=== PATIENT | female | born 1950 | race Caucasian/White ===

== ENCOUNTER → 2016-12-21 | Outpatient (CLI) | payer MEDICARE, OTHER | END | disposition home or self-care (01) | LOC: ORTHO 00:36 | DX: M17.12 Unilateral primary osteoarthritis, left knee (principal) ==

== ENCOUNTER → 2016-12-23 | Outpatient (CLI) | payer MEDICARE, OTHER | END | disposition home or self-care (01) | LOC: MRI 02:02 | DX: S83.412A Sprain of medial collateral ligament of left knee, initial encounter (principal); M93.262 Osteochondritis dissecans, left knee; S83.242A Other tear of medial meniscus, current injury, left knee, initial encounter; M25.762 Osteophyte, left knee; M71.22 Synovial cyst of popliteal space [Baker], left knee; M94.8X8 Other specified disorders of cartilage, other site; M25.462 Effusion, left knee; X58.XXXA Exposure to other specified factors, initial encounter; Y93.89 Activity, other specified; Y92.89 Other specified places as the place of occurrence of the external cause; Y99.8 Other external cause status ==

== ENCOUNTER → 2017-01-05 | Outpatient (CLI) | payer MEDICARE, OTHER ==
[2017-01-05 12:11] LABS: BASO # 0.1 10*3/uL (0.0-0.1); BASO % 0.7 % (0.0-1.0); EOS # 0.2 10*3/uL (0.0-0.4); EOS % 2.3 % (1.0-4.0); HEMATOCRIT 39.8 % (37.0-47.0); HEMOGLOBIN 12.7 g/dl (12.0-16.0); LYMPH # 1.7 10*3/uL (1.3-4.4); LYMPH % 22.9 % (27.0-41.0); MEAN CELL VOLUME 95.2 fl (81.0-99.0); MEAN CORPUSCULAR HGB 30.4 pg (27.0-31.0); MEAN CORPUSCULAR HGB CONC 31.9 g/dl (33.0-37.0); MEAN PLATELET VOLUME 10.3 fl (9.6-12.3); MONO # 0.7 10*3/uL (0.1-1.0); MONO % 9.3 % (3.0-9.0); NEUT # 4.7 10*3/uL (2.3-7.9); NEUT % 64.5 % (47.0-73.0); PLATELET COUNT AUTOMATED 301 10*3/uL (130-400); RED BLOOD COUNT 4.18 10*6/uL (4.10-5.10); RED CELL DISTRI WIDTH 13.6 % (0-14.5); WHITE BLOOD COUNT 7.3 10*3/uL (4.8-10.8)
[2017-01-05 12:38] LABS: ALBUMIN 3.6 gm/dl (3.1-4.5); ALKALINE PHOSPHATASE 121 U/L (45-117); BILIRUBIN, TOTAL 0.6 mg/dl (0.2-1.0); BUN 15 mg/dl (7-24); CARBON DIOXIDE 29 mmol/L (21-32); CHLORIDE 105 mmol/L (98-107); CHOLESTEROL 205 mg/dL (<200); EST GLOM FILT AFRICAN AMERICAN > 60 ml/min; GLUCOSE 92 mg/dL (65-99); HDL CHOLESTEROL 61 mg/dl (40-60); LDL CHOLESTEROL 98 mg/dL (9-159); POTASSIUM 4.6 mmol/L (3.5-5.1); SGOT/AST 14 IU/L (3-35); SGPT/ALT 18 U/L (12-78); SODIUM 143 mmol/L (136-145); TOTAL PROTEIN 8.1 gm/dL (6.4-8.2); TRIGLYCERIDES 231 mg/dl (<150); URIC ACID 7.6 mg/dL (2.6-6.0); VLDL CHOLESTEROL 46 mg/dL (6-40)
[2017-01-05 12:57] LABS: VITAMIN D, 25-HYDROXY 12.8 ng/mL (30-100)
== END | disposition home or self-care (01) ==
LOC: LAB 11:36
PROVIDERS: Internal Medicine
DX: M10.072 Idiopathic gout, left ankle and foot (principal); M81.0 Age-related osteoporosis without current pathological fracture; E66.09 Other obesity due to excess calories; E53.8 Deficiency of other specified B group vitamins; E55.9 Vitamin D deficiency, unspecified

== ENCOUNTER → 2017-01-11 | Outpatient (CLI) | payer MEDICARE, OTHER | END | disposition home or self-care (01) | LOC: CT 10:43 | DX: M93.262 Osteochondritis dissecans, left knee (principal) ==

== ENCOUNTER → 2017-02-17 | Outpatient (CLI) | payer MEDICARE, OTHER | END | disposition home or self-care (01) | LOC: MAMMO 01:51 | DX: Z12.31 Encounter for screening mammogram for malignant neoplasm of breast (principal); Z13.820 Encounter for screening for osteoporosis; Z78.0 Asymptomatic menopausal state; Z90.710 Acquired absence of both cervix and uterus ==

== ENCOUNTER → 2017-03-07 | Outpatient (CLI) | payer MEDICARE, OTHER ==
[~2017-03-07] MED LIST: ALLOPURINOL100 MG PO; B121000 MCG/1 IM; MICRONIZED COLES1 GM PO; PROPRANOLOL HCL40 MG PO
[2017-03-07 10:08] LABS: BILIRUBIN NEGATIVE (NEGATIVE); BLOOD 1+ (NEGATIVE); CLARITY CLEAR (CLEAR); COLOR YELLOW (YELLOW); GLUCOSE NEGATIVE (NEGATIVE); KETONE NEGATIVE (NEGATIVE); LEUKO ESTERASE NEGATIVE (NEGATIVE); NITRITE NEGATIVE (NEGATIVE); SPECIFIC GRAVITY 1.015 (1.005-1.030); UROBILINOGEN 0.2 E.U./dl (0.2-1.0)
[2017-03-07 10:23] LABS: BASO # 0.1 10*3/uL (0.0-0.1); BASO % 0.9 % (0.0-1.0); EOS # 0.2 10*3/uL (0.0-0.4); EOS % 2.9 % (1.0-4.0); HEMATOCRIT 40.6 % (37.0-47.0); HEMOGLOBIN 13.1 g/dl (12.0-16.0); LYMPH # 1.7 10*3/uL (1.3-4.4); LYMPH % 24.9 % (27.0-41.0); MEAN CELL VOLUME 95.5 fl (81.0-99.0); MEAN CORPUSCULAR HGB 30.8 pg (27.0-31.0); MEAN CORPUSCULAR HGB CONC 32.3 g/dl (33.0-37.0); MEAN PLATELET VOLUME 10.6 fl (9.6-12.3); MONO # 0.6 10*3/uL (0.1-1.0); NEUT # 4.2 10*3/uL (2.3-7.9); PLATELET COUNT AUTOMATED 282 10*3/uL (130-400); RED BLOOD COUNT 4.25 10*6/uL (4.10-5.10); RED CELL DISTRI WIDTH 13.9 % (0-14.5); WHITE BLOOD COUNT 6.8 10*3/uL (4.8-10.8)
[2017-03-07 10:47] LABS: ALBUMIN 3.7 gm/dl (3.1-4.5); BUN 12 mg/dl (7-24); CHLORIDE 108 mmol/L (98-107); CREATININE 0.89 mg/dL (0.55-1.02); SGOT/AST 17 IU/L (3-35); SGPT/ALT 19 U/L (12-78); SODIUM 142 mmol/L (136-145)
[2017-03-07 10:48] LABS: ALKALINE PHOSPHATASE 129 U/L (45-117); TOTAL PROTEIN 8.1 gm/dL (6.4-8.2)
== END | disposition home or self-care (01) ==
LOC: LAB 08:11
PROVIDERS: Orthopaedic Surgery
DX: Z01.818 Encounter for other preprocedural examination (principal); M17.12 Unilateral primary osteoarthritis, left knee; Q25.46 Tortuous aortic arch; Z79.899 Other long term (current) drug therapy; Z96.652 Presence of left artificial knee joint

== ENCOUNTER 2017-03-14 03:17 | Inpatient (IN) | payer MEDICARE, OTHER ==
[2017-03-14] VITALS (9 sets, daily range): BP systolic 112–161; BP diastolic 52–71
[~2017-03-14] VITALS: Ht 165.1 cm; Wt 92.5 kg
--- NOTE | ~2017-03-14 | O ---
[place], [place] OPERATIVE NOTE NAME: SHANNAN CANTU UNIT #: [id number] ROOM: 422 DOCTOR: YOLANDE ROSAS DO BIRTHDATE: [birth year] DOS: 03/14/2017 PREOPERATIVE DIAGNOSIS: Tricompartmental left knee osteoarthritis. POSTOPERATIVE DIAGNOSIS: Tricompartmental left knee osteoarthritis. PROCEDURE: Left total knee arthroplasty, tricompartmental. SURGEON: Yolande Rosas D.O. FIRST ASSISTANTS: Robinson Wong Evans, Holder. ANESTHESIA: [place], NURSE EDUCATOR, Spinal. INDICATIONS: The patient is a 66-year-old female with a history of pain and disability at the left knee, unrelieved with conservative care. The risks and benefits of the procedure were explained to the patient preoperatively. Preoperative labs and x-rays were obtained including preoperative medical clearance. PROCEDURE IN DETAIL: The left knee was marked in the holding room. The patient was brought to the operative suite. Spinal anesthetic was performed by Anesthesia. When this was adequate, the patient received preoperative antibiotics, Ancef 2 grams IV piggyback. Timeout was performed. The tourniquet was placed on the left upper thigh. The left lower extremity was prepped and draped in usual orthopedic fashion. The incision was planned at the midline, patellar region. This was injected with Marcaine 0.5% with epinephrine. The extremity was exsanguinated and the tourniquet was inflated to 350 mmHg. The midline patellar incision was made sharply with a scalpel. Subcutaneous tissue was spread down to the level of the quadriceps mechanism. Electrocautery was used to maintain hemostasis. The quadriceps mechanism was divided in a medial parapatellar fashion. The quadriceps and patella was slid laterally. The knee was flexed to 90 degrees. The prepatellar fat pad and the anterior cruciate ligament were debrided as well as the anterior portion of the medial and lateral meniscus. The F1-I jig was placed on to the distal femur with the stylet at the anterior cortex of the femur. The coring tool was utilized to create 2 holes in the distal femur and advanced to the level of the subchondral bone. The alignment IJ-F2 was attached to the distal resection, IJ-F3C. Two parallel drill holes were filled with smooth pins and a third was placed for stability. The rotational reference holes were drilled and marked with a marking pen. The F2 jig was removed. The oscillating saw was used to make the distal femoral cut. The cross pins and the FC-I Jig was removed. The F1 jig was removed. The 2 pins were placed in the previously marked holes of the distal femur. The F4 anterior, posterior, resection jig was placed over Steinmann pins and sat flushed against the cut distal surface. The chandrakant wing was utilized to avoid any anterior notching of the femur. Two additional pins were utilized to set rotation. The anterior femoral cut followed by the posterior femoral cut and the anterior chamfer cuts were made. The 2 femoral lug holes were drilled with an 8-mm bit. The pins and the F4-I jig were [place], [place] OPERATIVE NOTE NAME: SHANNAN CANTU UNIT #: [id number] ROOM: [facility] DOCTOR: YOLANDE ROSAS DO BIRTHDATE: [birth year] removed. The F5-I jig was then placed and the posterior chamfer cuts were made. Attention was turned to the proximal tibia. The patient's specific jig was placed on the proximal tibia after the articular cartilage had been cleared from the area of the projections down to the subchondral bone. The alignment jig was attached. This was found to be adequate. Two parallel pins and one cross pin were placed. The proximal tibial cut was made using an oscillating saw, followed by a large osteotome to remove the articular surface of the tibia. All drapes were removed and any remaining meniscal tissue was removed sharply. The femoral trial was put into place, followed by the tibial prep IJ-4. The alignment was confirmed with the alignment adamaris. The knee was taken through range of motion, 0-120,. Stability was evaluated at 0 and 30 degrees and found to be adequate. The T4A tibial preparation drill tower was seated in the T4 I-jig and the tack pins were placed. The stem was drilled through the tower and the tower was then removed. The keel punch was then utilized to prepare the proximal tibia. The tibial T4-I jig was then removed. Attention was then turned to the patella. Utilizing the caliber, the articular surface was removed with the oscillating saw. The patellar sizer was then put into place and a 32 mm patella was determined to be the most appropriate size. The drill holes were made through the sizer and the sizer was removed. A pulse lavage was utilized to remove any remaining bony or cartilaginous fragments from the cut edges of the tibia, femur or patella. The methyl methacrylate was mixed and the tibial tray was coated with methyl methacrylate. This was then impacted into place and any excess cement was removed using a Tioga elevator. The femoral implant was then coated with methyl methacrylate and cemented into place. Excess cement was cleared using the Tioga elevator and a curette. The lateral trial 6 mm insert was placed followed by the medial trial. The knee was placed into full extension and the patella was cemented into place and held by the patellar clamp. The cement was allowed to set. The trial inserts were removed and the knee was reevaluated for any remaining cement debris and copiously irrigated with normal saline. When this was found to be adequate, the 6 mm medial and lateral inserts were placed with the lateral first and the medial second, followed by impacting with the poly impacter tip and a mallet. This was confirmed to be locked into place with no remaining gapping between the inserts and the tibial tray. The knee was taken through the range of motion again from 0-120 with stability evaluated in a varus and valgus direction at 0 and 30 degrees. This was found to be stable. There was found to have excellent patellar tracking. The wound was closed in a layered fashion using 0 Vicryl for the quadriceps mechanism, followed by 2-0 Vicryl and skin zack. The incision was again injected with Marcaine 0.5% with epinephrine. The tourniquet was released. Xeroform, 4 x 4s, cast padding, and ABDs were applied followed by an Charles bandage from the metatarsal heads to the groin. The patient was taken to the recovery room in satisfactory condition. ESTIMATED BLOOD LOSS: 150 mL. Sponge and needle count correct. [place], [place] OPERATIVE NOTE NAME: SHANNAN CANTU UNIT #: [id number] ROOM: [facility] DOCTOR: YOLANDE ROSAS DO BIRTHDATE: [birth year] SPECIMENS: Bone and soft tissue from the distal femur, proximal tibia and articular surface of the patella sent to lab for further study. DRAINS: None. PACKING: None. COMPLICATIONS: None. IMPLANTS: ConforMIS cemented tibial and femoral cruciate retaining implants and patellar button 32 x 6 mm. YOLANDE ROSAS DO CM:OPRECORD:OPERATIVE NOTE [id number] YOLANDE ROSAS DO 03/20/172205 interface
--- NOTE | 2017-03-14 12:20 | NUR ---
A 66, admitted to , under the services of RENNY Amaya DO with a diagnosis of S/P TOTAL LEFT KNEE ARTHROPLASTY. Chief complaint is SURGERY. Patient arrived via bed from [place]. Monitor applied. Initial assessment completed. Vital signs taken and recorded. RENNY AMAYA DO notified of admission to the unit. Orders received. See assessment for past medical history, medications and allergies. Patient and/or family oriented to unit. [facility] reviewed. Clothing/patient valuable form completed. RAFFI LAYNE
--- NOTE | 2017-03-14 12:33 | NUR ---
PHYSICAL THERAPY PAtient not on floor at this time. Thank you for this referral. Linda Peña,PT
--- NOTE | 2017-03-14 13:09 | NUR ---
MED REC UPDATED BY CALLING [facility] AND PT RECALL.
--- NOTE | 2017-03-14 13:10 | NUR ---
PT STATES SHE IS GOING TO USE [facility] BUT THE LAST PLACE MEDS WERE FILLED WAS [facility].
--- NOTE | 2017-03-14 14:22 | NUR ---
PHYSICAL THERAPY Patient evalauted on 4, full evaluation to follow. Continue with PT as per plan of care with fall and new TKA left LE- WBAT precautions. Qualifies for SNF for impaird mobility in order to return to PLOF of 100 % (I). PAtient is moderate complexity via chart review, tests and evaluation: 63623. Thank you for this referral. Linda Truong,PT
--- NOTE | 2017-03-14 16:30 | NUR ---
DR LARSON NOTIFIED THAT PT RECTAL TEMP IS 96.3 HE STATED TO PUT SOME WARM BLANKETS ON HER AND RECHECK.
--- NOTE | 2017-03-14 17:00 | NUR ---
PT INSTRUCTED FOR IS THERAPY. PT GAVE A RETURN DEMONSTRATION ACHIEVING A VOLUME OF 1500 ML X 10 BREATHS. GOOD EFFORT. NO C/O QUESTIONS.
--- NOTE | 2017-03-14 17:15 | NUR ---
zofran given at this time for n/v. will cont to monitor. call light in reach.
--- NOTE | 2017-03-14 17:47 | NUR ---
TEMP RECHECK 97.3 AXILLARY.
--- NOTE | 2017-03-14 18:15 | NUR ---
VINCE LLANES AT THIS TIME. WILL CONT TO MONITOR. CALL LIGHT IN REACH.
--- NOTE | 2017-03-14 22:47 | NUR ---
PATIENT MEDICATED WITH PRN NORCO ORDERD FOR C/O STOMACH PAIN AT A 5.
--- NOTE | 2017-03-14 23:53 | NUR ---
PATIENT MEDICATED WITH PRN ZOFRAN ORDERED FOR NAUSEA AND VOMITING.
[2017-03-15] VITALS: BP 120/54
[2017-03-15 06:50] LABS: BASO % 0.2 % (0.0-1.0); EOS # 0.1 10*3/uL (0.0-0.4); EOS % 1.4 % (1.0-4.0); HEMATOCRIT 31.2 % (37.0-47.0); LYMPH # 1.2 10*3/uL (1.3-4.4); MEAN CELL VOLUME 96.6 fl (81.0-99.0); MEAN CORPUSCULAR HGB CONC 32.1 g/dl (33.0-37.0); MEAN PLATELET VOLUME 10.4 fl (9.6-12.3); MONO # 1.3 10*3/uL (0.1-1.0); MONO % 15.6 % (3.0-9.0); NEUT # 5.7 10*3/uL (2.3-7.9); NEUT % 68.6 % (47.0-73.0); PLATELET COUNT AUTOMATED 224 10*3/uL (130-400); RED BLOOD COUNT 3.23 10*6/uL (4.10-5.10); RED CELL DISTRI WIDTH 13.9 % (0-14.5); WHITE BLOOD COUNT 8.4 10*3/uL (4.8-10.8)
[2017-03-15 07:04] LABS: BUN 14 mg/dl (7-24); CHLORIDE 104 mmol/L (98-107); CREATININE 0.93 mg/dL (0.55-1.02); POTASSIUM 3.9 mmol/L (3.5-5.1); SODIUM 140 mmol/L (136-145)
[2017-03-15 07:26] LABS: VITAMIN D, 25-HYDROXY 13.9 ng/mL (30-100)
[2017-03-15 08:00] VITALS: BP 110/45
--- NOTE | 2017-03-15 08:00 | NUR ---
PT OOB WITH THERAPY AND NOW SITTING IN RECLINER. PT DENIES HAVING ANY PAIN. KATYA BANDAGE TO LEFT LEG INTACT. NO S/S OF DISTRESS. WILL CONT TO MONITOR. CALL LIGHT IN REACH. SEE ASSESS. LABS REVIEWED.
--- NOTE | 2017-03-15 08:30 | NUR ---
Senior Quantity Surveyor in to talk to patient. Patient states lives at HOME [address] with HER . There are 0 HAS RAMP steps in the home. Physician: DR JACKSON [facility]: [facility] Home health services: NONE CHOOSES [facility] NURSE/PT/OT UPON DC Patient's level of ADLs: MODERATE ASSIST Patient has working utilities: YES DME: WHEELED WALKER/[facility] Follow-up physician's appointment after d/c: WILL BE MADE PRIOR TO DC Does patient want to access PORTAL?: Discharge plan DOES NOT WANT TO GO TO SNF. WANTS TO GO HOME WITH HOME HEALTH. LEOBARDO LEAL
--- NOTE | 2017-03-15 08:30 | NUR ---
PT DANA THINK SHE WANTS THE CPM MACHINE. I WILL CHECK BACK WITH HER BEFORE DC TO SEE IF SHE CHNAGES HER MIND.
--- NOTE | 2017-03-15 09:41 | NUR ---
PHYSICAL THERAPY Mrs Freire seen this AM 1:1 for her physical therapy session. Pt was supine in bed with her CPM on at 0 extension, 30d flexion and having no problems with this. Pt's nurse in at this time and said that the CPM can be taken off now. Remove CPM from Pt's left LE, followed by rom to left knee with little pain. Transfer supine/sit MOD A X 1, sitting balance supervision X 1, Pt is WBAT left LE and did well with this. Sit/stand, standing balance MOD A X 1, weight shift. Followed by gait 24' X 1, with wheeled walker, MOD A X 1, no LOB, Pt has IV Pole, gait to her bedside chair, [facility] phone end with rom to left knee, treatment time [address]ER CANDLE MOLDER.
--- NOTE | 2017-03-15 11:45 | NUR ---
CPM MACHINE STARTED.
[2017-03-15 12:00] VITALS: BP 127/50
--- NOTE | 2017-03-15 12:23 | NUR ---
PT STATES SHE IS GOING TO START USING [facility] BUT HAS GOTTEN MEDS UNTIL NOW AT [facility]. [facility] CALLED TO SEE IF INS WILL PAY FOR LOVENOX. PT WILL HABE A $50 COPAY. PT STATES SHE CAN AFFORD THIS. STATES DAUGHTER IS A NURSE AND CAN GIVE SHOT AND CAN ALSO.
--- NOTE | 2017-03-15 13:30 | NUR ---
PHYSICAL THERAPY Pt seen this PM 1:1 for her therapy session. Pt supine in bed with CPM on at 0 extension, 30d flexion left LE. Transfer supine/sit MIN A X 1, sitting balance supervision x 1, sit/stand and standing balance MOD A X 1, followed by gait 85' X 1, with W/W and MOD A X 1, with cueing for gait safety, step through, stop/start gait. Pt back up in her bedside chair, call light and lunch in at this time. EM STREETER TRADESHOW WORKER.
--- NOTE | 2017-03-15 13:32 | NUR ---
Occupational Therapy evaluation completed this date on 4 with full eval to follow. Precautions include fall risk, left TKA precautions, moderate complexity level 82570, new ww use, alfred. Recommend OT per POC and home with with HH OT,PT,SN. Thank you for this referral. Ruby Squires OTR/l
--- NOTE | 2017-03-15 13:53 | NUR ---
PT UP AND AMBULTING SHORT DISTANCES. RUIZ CATH REMOVED AND TOLERATED WELL.
--- NOTE | 2017-03-15 15:41 | NUR ---
TYLENOL GIVEN FOR C/O LEFT KNEE PAIN OF 6/10. WILL CONT TO MONITOR. CALL LIGHT IN REACH.
[2017-03-15 16:00] VITALS: BP 138/69
--- NOTE | 2017-03-15 16:41 | NUR ---
TYLENOL EFF FOR C/O LEFT KNEE PAIN. PT STATES SHE ISN'T HAVING ANY PAIN CURRENTLY. WILL CONT TO MONITOR.
[2017-03-15] MEDS ORDERED: VITAMIN D5000 UNI1 PO (17:28)
--- NOTE | 2017-03-15 17:31 | NUR ---
PT IV STOPPED WORKING AND PT ASKED IF IT CAN BE LEFT OUT. DR LARSON SAID YES WE CAN LEAVE IT OUT.
[2017-03-15] MEDS ORDERED: ENOXAPARIN30 MG/0.2 SC (17:36)
--- NOTE | 2017-03-15 18:00 | NUR ---
CPM STARTED AT THIS TIME ORDERED.
--- NOTE | 2017-03-15 19:50 | NUR ---
PATIENT IS RESTING IN BED. TAKEN OFF CPM AT THIS TIME. C/O SLIGHT KNEE PAIN RATED A 4 BUT DOES NOT WANT ANYTHING FOR IT AT THIS TIME. RESPIRATIONS ARE EASY/REGULAR. NO SXS OF DISTRESS. CALL LIGHT IS IN REACH.
[2017-03-15 20:00] VITALS: BP 119/56
--- NOTE | 2017-03-15 21:32 | NUR ---
Patient medicated with prn percocet as ordered for c/o left knee pain rated a 6. Will monitor effectiveness.
--- NOTE | 2017-03-15 22:01 | NUR ---
RESTING QUIETLY IN BED. NO VOICED COMPLAINTS. RESPIRATIONS EASY/REG.
--- NOTE | 2017-03-15 22:30 | NUR ---
PATIENT STATES THAT EARLIER PERCOCET WAS EFFECTIVE.
[2017-03-16] VITALS: BP 129/64
--- NOTE | 2017-03-16 01:24 | NUR ---
SLEEPING. RESPIRATIONS EASY/REG. NO SXS OF DISTRESS. CALL LIGHT IN REACH
[2017-03-16 06:03] LABS: BASO % 0.4 % (0.0-1.0); EOS # 0.3 10*3/uL (0.0-0.4); HEMATOCRIT 32.2 % (37.0-47.0); HEMOGLOBIN 10.4 g/dl (12.0-16.0); LYMPH # 1.2 10*3/uL (1.3-4.4); LYMPH % 12.8 % (27.0-41.0); MEAN CELL VOLUME 96.1 fl (81.0-99.0); MEAN CORPUSCULAR HGB CONC 32.3 g/dl (33.0-37.0); MEAN PLATELET VOLUME 10.2 fl (9.6-12.3); MONO # 1.1 10*3/uL (0.1-1.0); MONO % 12.2 % (3.0-9.0); NEUT # 6.7 10*3/uL (2.3-7.9); NEUT % 71.2 % (47.0-73.0); PLATELET COUNT AUTOMATED 233 10*3/uL (130-400); RED BLOOD COUNT 3.35 10*6/uL (4.10-5.10); RED CELL DISTRI WIDTH 13.9 % (0-14.5); WHITE BLOOD COUNT 9.4 10*3/uL (4.8-10.8)
--- NOTE | 2017-03-16 06:18 | NUR ---
PATIENT REQUESTED AND RECEIVED PRN PERCOCET ORDERED FOR C/O RIGHT KNEE PAIN.
--- NOTE | 2017-03-16 06:40 | NUR ---
PATIENT STARTED ON CPM MACHINE AT THIS TIME.
[2017-03-16 08:00] VITALS: BP 138/72
--- NOTE | 2017-03-16 08:10 | NUR ---
PHYSICAL THERAPY Leana Sanches seen this AM 1:1 for her therapy session. Pt was supine in bed with CPM on at 0 extension, 30d flexion. CPM taken off at this time, followed by rom to pt's left LE knee, working flexion/extension. Then transfer supine/sit MIN A X 1, sitting balance supervision X 1, working left knee flexion in sitting, sit/stand and up on wheeled walker MIN A X 1. Gait total 120' X 1, CG X 1, no LOB and cueing for step through, toe off for smooth knee flexion/extension. Pt up in her bedside chair for passive knee flexion, Pt with phone/call light, treatment tiem [address]ER EXAMINATION PROCTOR.
--- NOTE | 2017-03-16 10:10 | NUR ---
DISCHARGED TO HOME IN CARE OF DAUGHTER TO GO TO DR RODRIGUES'S OFFICE. INSTRUCTIONS AND PERSCRIPTIONS REVIEWED WITH PT AND DAUGHTER.
[2017-03-16 12:00] VITALS: BP 137/68
--- NOTE | 2017-03-16 12:38 | NUR ---
PHYSICAL THERAPY Mrs Freire seen this PM 1:1 for her therapy session and continue to improve. Transfer supine/sit MIN A X 1, sitting balance with left knee flexion supervision X 1, with improvement in knee flexion. Sit/stand standing balance with wheeled walker MIN A X 1. Gait total 180' X 1, CG X 1, no LOB with cueing for step length, toe off and heal strike. Pt up in her bedside chair for her lunch. EM STREETER GLASS ETCHER.
--- NOTE | 2017-03-16 14:00 | NUR ---
Patient is being discharge to home with home health via [facility]. Received order, faxed clincals to [facility]
--- NOTE | 2017-03-16 14:10 | NUR ---
LINK TRAINER VS. PT HAS DECIDED SHE WANTS THE CPM MACHINE. DOESNT CARE WHAT COMPANY I CALL TO PROVIDE IT. CALLED [facility]. SCRIPT AND PAPERWORK FAXED. AWARE PT WILL BE DC TODAY. WILL LIKELY DELIVER TO HER HOME TOMORROW.
--- NOTE | 2017-03-16 15:03 | NUR ---
PHYSICAL THERAPY CO-SIGN I approve of the Phyical Therapy notes written above. ALLIE MCPHERSON PT
[2017-03-16] MEDS ORDERED: Percocet 325 MG1 TAB PO (15:13)
--- NOTE | 2017-03-16 16:15 | NUR ---
DISCHARGED TO HOME IN CARE OF SPOUSE. INSTRUCTIONS AND PERSCRIPTIONS REVIEWED WITH PT. VOICES UNDERSTANDING.
== END 2017-03-16 16:15 | disposition home health service (06) | DRG 470 ==
LOC: SDC 03:17 → 4E 10:49
PROVIDERS: Internal Medicine; Orthopaedic Surgery; ADMIT Internal Medicine
PROC: 0SRD0J9 Replacement of Left Knee Joint with Synthetic Substitute, Cemented, Open Approach (ICD-10-PCS; principal; 2017-03-14)
DX: M17.12 Unilateral primary osteoarthritis, left knee (principal); E55.9 Vitamin D deficiency, unspecified; D51.0 Vitamin B12 deficiency anemia due to intrinsic factor deficiency; I34.1 Nonrheumatic mitral (valve) prolapse; K52.9 Noninfective gastroenteritis and colitis, unspecified; R73.9 Hyperglycemia, unspecified; Z81.1 Family history of alcohol abuse and dependence; Z82.49 Family history of ischemic heart disease and other diseases of the circulatory system; Z87.39 Personal history of other diseases of the musculoskeletal system and connective tissue; Z84.89 Family history of other specified conditions; Z88.1 Allergy status to other antibiotic agents; Z88.2 Allergy status to sulfonamides; Z79.899 Other long term (current) drug therapy; D64.9 Anemia, unspecified

== ENCOUNTER → 2017-03-30 | Outpatient (CLI) | payer MEDICARE, OTHER ==
[~2017-03-30] MED LIST changes: +ENOXAPARIN30 MG/0.2 SC; +Percocet 325 MG1 TAB PO; +VITAMIN D5000 UNI1 PO
== END | disposition home or self-care (01) ==
LOC: ORTHO 00:21
DX: M25.462 Effusion, left knee (principal); Z96.652 Presence of left artificial knee joint

== ENCOUNTER → 2017-04-03 | Outpatient (CLI) | payer MEDICARE, OTHER | END | disposition home or self-care (01) | LOC: US 10:16 | DX: M79.89 Other specified soft tissue disorders (principal) ==

== ENCOUNTER → 2017-05-22 | Outpatient (CLI) | payer MEDICARE, OTHER | END | disposition home or self-care (01) | LOC: ORTHO 02:47 | DX: Z47.1 Aftercare following joint replacement surgery (principal); M25.462 Effusion, left knee; Z96.662 Presence of left artificial ankle joint ==

== ENCOUNTER → 2017-09-05 | Outpatient (CLI) | payer MEDICARE, OTHER ==
[2017-09-05 09:57] LABS: BASO # 0.1 10*3/uL (0.0-0.1); BASO % 0.7 % (0.0-1.0); EOS # 0.1 10*3/uL (0.0-0.4); EOS % 1.7 % (1.0-4.0); HEMATOCRIT 41.5 % (37.0-47.0); HEMOGLOBIN 13.2 g/dl (12.0-16.0); LYMPH # 1.4 10*3/uL (1.3-4.4); LYMPH % 20.7 % (27.0-41.0); MEAN CELL VOLUME 93.7 fl (81.0-99.0); MEAN CORPUSCULAR HGB 29.8 pg (27.0-31.0); MEAN CORPUSCULAR HGB CONC 31.8 g/dl (33.0-37.0); MEAN PLATELET VOLUME 10.3 fl (9.6-12.3); MONO # 0.7 10*3/uL (0.1-1.0); MONO % 9.5 % (3.0-9.0); NEUT # 4.7 10*3/uL (2.3-7.9); PLATELET COUNT AUTOMATED 308 10*3/uL (130-400); RED BLOOD COUNT 4.43 10*6/uL (4.10-5.10)
[2017-09-05 10:14] LABS: ALBUMIN 3.5 gm/dl (3.1-4.5); ALKALINE PHOSPHATASE 148 U/L (45-117); BUN 16 mg/dl (7-24); CHLORIDE 104 mmol/L (98-107); CHOLESTEROL 217 mg/dL (<200); CREATININE 1.02 mg/dL (0.55-1.02); HDL CHOLESTEROL 57 mg/dl (40-60); LDL CHOLESTEROL 103 mg/dL (9-159); POTASSIUM 4.1 mmol/L (3.5-5.1); SGOT/AST 14 IU/L (3-35); SGPT/ALT 19 U/L (12-78); SODIUM 140 mmol/L (136-145); TOTAL PROTEIN 8.5 gm/dL (6.4-8.2); TRIGLYCERIDES 285 mg/dl (<150); VLDL CHOLESTEROL 57 mg/dL (6-40)
== END | disposition home or self-care (01) ==
LOC: LAB 09:18
PROVIDERS: Internal Medicine
DX: M81.0 Age-related osteoporosis without current pathological fracture (principal); E66.09 Other obesity due to excess calories; Z79.899 Other long term (current) drug therapy

== ENCOUNTER → 2017-09-15 | Outpatient (CLI) | payer MEDICARE, OTHER | END | disposition home or self-care (01) | LOC: ORTHO 01:38 | DX: Z47.1 Aftercare following joint replacement surgery (principal); Z96.652 Presence of left artificial knee joint ==

== ENCOUNTER → 2018-01-05 | Outpatient (CLI) | payer MEDICARE, OTHER ==
[2018-01-05 09:50] LABS: ALBUMIN 3.5 gm/dl (3.1-4.5); BASO % 0.5 % (0.0-1.0); BUN 12 mg/dl (7-24); CHLORIDE 109 mmol/L (98-107); CHOLESTEROL 157 mg/dL (<200); EOS # 0.3 10*3/uL (0.0-0.4); EOS % 4.4 % (1.0-4.0); HDL CHOLESTEROL 60 mg/dl (40-60); HEMATOCRIT 38.9 % (37.0-47.0); HEMOGLOBIN 12.4 g/dl (12.0-16.0); LDL CHOLESTEROL 55 mg/dL (9-159); LYMPH # 1.3 10*3/uL (1.3-4.4); MEAN CELL VOLUME 93.7 fl (81.0-99.0); MEAN CORPUSCULAR HGB 29.9 pg (27.0-31.0); MEAN CORPUSCULAR HGB CONC 31.9 g/dl (33.0-37.0); MEAN PLATELET VOLUME 10.4 fl (9.6-12.3); MONO # 0.7 10*3/uL (0.1-1.0); MONO % 9.5 % (3.0-9.0); NEUT # 4.9 10*3/uL (2.3-7.9); NEUT % 67.3 % (47.0-73.0); PLATELET COUNT AUTOMATED 282 10*3/uL (130-400); POTASSIUM 3.8 mmol/L (3.5-5.1); RED BLOOD COUNT 4.15 10*6/uL (4.10-5.10); RED CELL DISTRI WIDTH 13.7 % (0-14.5); SGOT/AST 15 IU/L (3-35); SODIUM 143 mmol/L (136-145); TRIGLYCERIDES 210 mg/dl (<150); VLDL CHOLESTEROL 42 mg/dL (6-40); WHITE BLOOD COUNT 7.3 10*3/uL (4.8-10.8)
[2018-01-05 10:01] LABS: ALKALINE PHOSPHATASE 130 U/L (45-117); SGPT/ALT 15 U/L (12-78); TOTAL PROTEIN 8.1 gm/dL (6.4-8.2)
[2018-01-05 10:13] LABS: VITAMIN D, 25-HYDROXY 9.4 ng/mL (30-100)
== END | disposition home or self-care (01) ==
LOC: LAB 08:56
PROVIDERS: Internal Medicine
DX: M81.0 Age-related osteoporosis without current pathological fracture (principal); E53.8 Deficiency of other specified B group vitamins; E66.09 Other obesity due to excess calories; Z79.899 Other long term (current) drug therapy

== ENCOUNTER → 2018-04-02 | Outpatient (CLI) | payer MEDICARE, OTHER | END | disposition home or self-care (01) | LOC: ORTHO 00:38 | DX: Z47.1 Aftercare following joint replacement surgery (principal); Z96.652 Presence of left artificial knee joint ==

== ENCOUNTER → 2018-04-19 | Outpatient (CLI) | payer MEDICARE, OTHER | END | disposition home or self-care (01) | LOC: MAMMO 08:17 | DX: Z12.31 Encounter for screening mammogram for malignant neoplasm of breast (principal) ==

== ENCOUNTER → 2018-05-28 | Outpatient (CLI) | payer MEDICARE, OTHER ==
--- NOTE | ~2018-05-28 | HM ---
[place], [place] HOLTER MONITOR REPORT [id number] UNIT #: [id number] ROOM: DOCTOR: GERMÁN WASHBURN MD BIRTHDATE: [birth year] DOS: 05/29/2018 PROCEDURE: A 24-hour Holter monitor. The patient remained in sinus rhythm. Minimum heart rate is 54, maximum heart rate is 119, average rate of 69 beats per minute. The patient had episodes of atrial tachycardia. The fastest rate was ____ at 06:55 in the morning 170 beats per minute. Isolated premature atrial contractions are also present. As mentioned, a few runs of atrial tachycardia present. No ventricular dysrhythmia. No pauses are present. FINAL IMPRESSION: Sinus rhythm and a few episodes of atrial tachycardia. No ventricular dysrhythmia. No pauses. GERMÁN WASHBURN MD CM:HOLTER:HOLTER MONITOR REPORT [id number] GERMÁN WASHBURN MD
== END ==
LOC: CARD 09:23
DX: I49.9 Cardiac arrhythmia, unspecified (principal); R00.2 Palpitations

== ENCOUNTER → 2019-04-17 | Outpatient (CLI) | payer MEDICARE, OTHER | END | disposition home or self-care (01) | LOC: ORTHO 01:27 | DX: Z96.652 Presence of left artificial knee joint (principal) ==

== ENCOUNTER → 2020-06-04 | Outpatient (CLI) | payer MEDICARE, OTHER | END | disposition home or self-care (01) | LOC: MAMMO 10:34 | PROVIDERS: ATTEND Physician Assistant | DX: Z12.31 Encounter for screening mammogram for malignant neoplasm of breast (principal) ==

== ENCOUNTER 2020-10-13 06:07 | Emergency (ER) | payer MEDICARE, OTHER ==
[2020-10-13 06:17] VITALS: BP 152/77
[2020-10-13 06:39] LABS: BILIRUBIN Negative (Negative); BLOOD 3+ (Negative); CLARITY Cloudy (Clear); COLOR Orange (Yellow); GLUCOSE Negative (Negative); KETONE Negative (Negative); LEUKO ESTERASE 1+ (Negative); NITRITE Negative (Negative); PH 6.5 (4.5-8.0); UROBILINOGEN 0.2 E.U./dl (0.0-1.0)
[2020-10-13 06:55] LABS: EPITHELIAL CELLS 0-2; RBC 51-100 rbc/hpf (0-2)
[2020-10-13] MEDS ORDERED: CIPRO500 MG PO (07:49)
== END 2020-10-13 08:02 | disposition home or self-care (01) ==
LOC: ED 06:07
PROVIDERS: Internal Medicine
DX: N39.0 Urinary tract infection, site not specified (principal); Z88.2 Allergy status to sulfonamides; Z88.8 Allergy status to other drugs, medicaments and biological substances; Z79.899 Other long term (current) drug therapy; Z98.890 Other specified postprocedural states; Z90.49 Acquired absence of other specified parts of digestive tract

== ENCOUNTER 2021-02-20 18:42 | Inpatient (IN) | payer MEDICARE, OTHER ==
[~2021-02-20] VITALS: Ht 165.1 cm; Wt 103.0 kg
[~2021-02-20 18:42] MED LIST changes: +CIPRO500 MG PO
[2021-02-20 18:57] VITALS: BP 145/75
[2021-02-20 19:54] LABS: BILIRUBIN 2+ (Negative); BLOOD 2+ (Negative); CLARITY Turbid (Clear); GLUCOSE Negative (Negative); KETONE Negative (Negative); LEUKO ESTERASE 3+ (Negative); NITRITE Positive (Negative); UROBILINOGEN 0.2 E.U./dl (0.0-1.0)
[2021-02-20 20:00] VITALS: BP 145/75
[2021-02-20 20:15] LABS: COLOR Red (Yellow)
[2021-02-20 20:17] LABS: BACTERIA 1+; RBC TNTC rbc/hpf (0-2)
[2021-02-20 21:19] LABS: BASO # 0.1 10*3/uL (0.0-0.1); BASO % 0.4 % (0.0-1.0); EOS # 0.2 10*3/uL (0.0-0.4); EOS % 1.7 % (1.0-4.0); HEMATOCRIT 39.6 % (37.0-47.0); LYMPH # 1.6 10*3/uL (1.3-4.4); MEAN CELL VOLUME 95.9 fl (81.0-99.0); MEAN CORPUSCULAR HGB 30.3 pg (27.0-31.0); MEAN CORPUSCULAR HGB CONC 31.6 g/dl (33.0-37.0); MEAN PLATELET VOLUME 10.5 fl (9.6-12.3); MONO # 1.1 10*3/uL (0.1-1.0); MONO % 7.9 % (3.0-9.0); NEUT # 11.4 10*3/uL (2.3-7.9); NEUT % 78.6 % (47.0-73.0); PLATELET COUNT AUTOMATED 291 10*3/uL (130-400); RED BLOOD COUNT 4.13 10*6/uL (4.10-5.10); RED CELL DISTRI WIDTH 13.8 % (0-14.5); WHITE BLOOD COUNT 14.5 10*3/uL (4.8-10.8)
[2021-02-20 21:37] LABS: ALBUMIN 3.5 gm/dl (3.1-4.5); CREATININE 1.14 mg/dL (0.55-1.02); POTASSIUM 3.8 mmol/L (3.5-5.1)
[2021-02-20 23:30] VITALS: BP 156/72
[2021-02-21 02:21] VITALS: BP 119/53
[2021-02-21 03:07] VITALS: BP 145/67
[2021-02-21 06:34] LABS: BASO # 0.1 10*3/uL (0.0-0.1); BASO % 0.6 % (0.0-1.0); EOS # 0.2 10*3/uL (0.0-0.4); EOS % 2.1 % (1.0-4.0); HEMATOCRIT 38.1 % (37.0-47.0); LYMPH # 2.1 10*3/uL (1.3-4.4); LYMPH % 19.5 % (27.0-41.0); MEAN CELL VOLUME 95.5 fl (81.0-99.0); MEAN CORPUSCULAR HGB 30.3 pg (27.0-31.0); MEAN CORPUSCULAR HGB CONC 31.8 g/dl (33.0-37.0); MEAN PLATELET VOLUME 10.6 fl (9.6-12.3); MONO # 1.1 10*3/uL (0.1-1.0); MONO % 9.7 % (3.0-9.0); NEUT # 7.4 10*3/uL (2.3-7.9); NEUT % 67.7 % (47.0-73.0); PLATELET COUNT AUTOMATED 270 10*3/uL (130-400); RED BLOOD COUNT 3.99 10*6/uL (4.10-5.10); RED CELL DISTRI WIDTH 13.7 % (0-14.5); WHITE BLOOD COUNT 10.9 10*3/uL (4.8-10.8)
[2021-02-21 06:44] LABS: ALBUMIN 3.3 gm/dl (3.1-4.5); ALKALINE PHOSPHATASE 110 U/L (45-117); BUN 11 mg/dl (7-24); CHLORIDE 109 mmol/L (98-107); CHOLESTEROL 139 mg/dL (<200); FREE T4 1.13 ng/dl (0.76-1.46); LDL CHOLESTEROL 42 mg/dL (9-159); POTASSIUM 3.8 mmol/L (3.5-5.1); SGOT/AST 11 IU/L (3-35); SGPT/ALT 18 U/L (12-78); SODIUM 140 mmol/L (136-145); TOTAL PROTEIN 7.2 gm/dL (6.4-8.2); TRIGLYCERIDES 226 mg/dl (<150)
[2021-02-21 08:00] VITALS: BP 133/69
[2021-02-21 08:24] LABS: VITAMIN D, 25-HYDROXY 46.8 ng/mL (30-100)
[2021-02-21 12:00] VITALS: BP 133/49
[2021-02-21 16:00] VITALS: BP 105/50
[2021-02-21 20:00] VITALS: BP 137/50
[2021-02-22] VITALS: BP 131/54
[2021-02-22 06:52] LABS: BASO # 0.1 10*3/uL (0.0-0.1); BASO % 0.8 % (0.0-1.0); EOS # 0.3 10*3/uL (0.0-0.4); EOS % 3.6 % (1.0-4.0); HEMATOCRIT 37.7 % (37.0-47.0); LYMPH # 1.9 10*3/uL (1.3-4.4); LYMPH % 24.8 % (27.0-41.0); MEAN CELL VOLUME 96.9 fl (81.0-99.0); MEAN CORPUSCULAR HGB 30.1 pg (27.0-31.0); MEAN PLATELET VOLUME 10.6 fl (9.6-12.3); MONO # 0.7 10*3/uL (0.1-1.0); MONO % 9.1 % (3.0-9.0); NEUT # 4.8 10*3/uL (2.3-7.9); NEUT % 61.6 % (47.0-73.0); PLATELET COUNT AUTOMATED 269 10*3/uL (130-400); RED BLOOD COUNT 3.89 10*6/uL (4.10-5.10); WHITE BLOOD COUNT 7.8 10*3/uL (4.8-10.8)
[2021-02-22 07:07] LABS: ALBUMIN 3.1 gm/dl (3.1-4.5); ALKALINE PHOSPHATASE 107 U/L (45-117); BUN 11 mg/dl (7-24); CHLORIDE 112 mmol/L (98-107); POTASSIUM 3.6 mmol/L (3.5-5.1); SGOT/AST 11 IU/L (3-35); SGPT/ALT 16 U/L (12-78); SODIUM 142 mmol/L (136-145); TOTAL PROTEIN 7.1 gm/dL (6.4-8.2)
[2021-02-22 08:00] VITALS: BP 143/60
[2021-02-22] MEDS ORDERED: CEFUROXIME AXE250 MG PO (10:33)
== END 2021-02-22 11:28 | disposition home or self-care (01) | DRG 690 ==
LOC: ED 18:42 → EDHOLD 02-21 01:19 → 4E 02-21 02:03
PROVIDERS: Emergency Medicine; Internal Medicine; ADMIT Student in an Organized Health Care Education/Training Program; ATTEND Student in an Organized Health Care Education/Training Program
DX: N30.01 Acute cystitis with hematuria (principal); I34.1 Nonrheumatic mitral (valve) prolapse; K52.9 Noninfective gastroenteritis and colitis, unspecified; E78.5 Hyperlipidemia, unspecified; E53.8 Deficiency of other specified B group vitamins; E55.9 Vitamin D deficiency, unspecified; Z96.652 Presence of left artificial knee joint; E78.2 Mixed hyperlipidemia; Z87.39 Personal history of other diseases of the musculoskeletal system and connective tissue; Z90.49 Acquired absence of other specified parts of digestive tract; Z88.2 Allergy status to sulfonamides; Z88.1 Allergy status to other antibiotic agents; Z79.899 Other long term (current) drug therapy; Z82.49 Family history of ischemic heart disease and other diseases of the circulatory system

== ENCOUNTER → 2021-05-06 | Outpatient (CLI) | payer MEDICARE, OTHER ==
[~2021-05-06] MED LIST changes: +CEFUROXIME AXE250 MG PO
== END | disposition home or self-care (01) ==
LOC: COVID19 15:15
PROVIDERS: ATTEND Student in an Organized Health Care Education/Training Program
DX: U07.1 COVID-19 (principal)

== ENCOUNTER → 2021-06-22 | Outpatient (CLI) | payer MEDICARE, OTHER | END | disposition home or self-care (01) | LOC: COVID19 15:57 | PROVIDERS: ATTEND Hospitalist | DX: Z11.52 Encounter for screening for COVID-19 (principal) ==

== ENCOUNTER 2021-09-12 09:42 | Emergency (ER) | payer MEDICARE ==
[~2021-09-12] VITALS: Ht 165.1 cm; Wt 89.8 kg
[2021-09-12 09:54] VITALS: BP 145/55
[2021-09-12] MEDS ORDERED: NAPROXEN250 MG PO ×3 (11:30→11:40)
[2021-09-12] MEDS ORDERED: TYLENOL325 M1 PO ×3 (11:30→11:40)
[2021-09-12] MEDS ORDERED: VOLTAREN ARTHRI20 GM T ×3 (11:30→11:40)
== END 2021-09-12 11:33 | disposition home or self-care (01) ==
LOC: ED 09:42
DX: I80.01 Phlebitis and thrombophlebitis of superficial vessels of right lower extremity (principal); E78.5 Hyperlipidemia, unspecified; M10.9 Gout, unspecified; Z88.1 Allergy status to other antibiotic agents; Z79.899 Other long term (current) drug therapy; Z90.49 Acquired absence of other specified parts of digestive tract; Z98.890 Other specified postprocedural states; Z90.710 Acquired absence of both cervix and uterus

== ENCOUNTER → 2021-09-13 | Outpatient (CLI) | payer MEDICARE ==
[~2021-09-13] MED LIST changes: +NAPROXEN250 MG PO; +TYLENOL325 M1 PO; +VOLTAREN ARTHRI20 GM T
== END | disposition home or self-care (01) ==
LOC: RAD 06:41
PROVIDERS: ATTEND Emergency Medicine
DX: I80.01 Phlebitis and thrombophlebitis of superficial vessels of right lower extremity (principal); I80.251 Phlebitis and thrombophlebitis of right calf muscular vein

== ENCOUNTER 2021-10-10 08:17 | Emergency (ER) | payer MEDICARE ==
[2021-10-10 09:15] LABS: BASO # 0.1 10*3/uL (0.0-0.1); BASO % 0.8 % (0.0-1.0); EOS # 0.2 10*3/uL (0.0-0.4); EOS % 3.5 % (1.0-4.0); HEMATOCRIT 39.4 % (37.0-47.0); LYMPH # 1.4 10*3/uL (1.3-4.4); LYMPH % 20.8 % (27.0-41.0); MEAN CELL VOLUME 93.6 fl (81.0-99.0); MEAN CORPUSCULAR HGB 30.2 pg (27.0-31.0); MEAN CORPUSCULAR HGB CONC 32.2 g/dl (33.0-37.0); MEAN PLATELET VOLUME 10.1 fl (9.6-12.3); MONO # 0.5 10*3/uL (0.1-1.0); MONO % 8.1 % (3.0-9.0); NEUT # 4.4 10*3/uL (2.3-7.9); NEUT % 66.6 % (47.0-73.0); PLATELET COUNT AUTOMATED 272 10*3/uL (130-400); RED BLOOD COUNT 4.21 10*6/uL (4.10-5.10); RED CELL DISTRI WIDTH 13.7 % (0-14.5); WHITE BLOOD COUNT 6.6 10*3/uL (4.8-10.8)
[2021-10-10 09:17] VITALS: BP 160/77
[2021-10-10 09:26] LABS: ACT PARTIAL THROMBO TIME 27.3 SECONDS (20.0-32.1)
[2021-10-10 09:33] LABS: ALKALINE PHOSPHATASE 100 U/L (45-117); BUN 13 mg/dl (7-24); CHLORIDE 108 mmol/L (98-107); CREATININE 0.99 mg/dL (0.55-1.02); SGOT/AST 15 IU/L (3-35); SGPT/ALT 20 U/L (12-78); SODIUM 142 mmol/L (136-145); TOTAL PROTEIN 7.4 gm/dL (6.4-8.2)
[2021-10-10] MEDS ORDERED: GOOD NEIGHBOR M25 M1 PO (09:46)
== END 2021-10-10 09:48 | disposition home or self-care (01) ==
LOC: ED 08:17
PROVIDERS: Emergency Medicine
DX: H81.11 Benign paroxysmal vertigo, right ear (principal); Z88.1 Allergy status to other antibiotic agents; E78.5 Hyperlipidemia, unspecified; Z90.49 Acquired absence of other specified parts of digestive tract; Z98.890 Other specified postprocedural states

== ENCOUNTER → 2021-10-21 | Outpatient (CLI) | payer MEDICARE ==
[~2021-10-21] MED LIST changes: +GOOD NEIGHBOR M25 M1 PO
== END | disposition home or self-care (01) ==
LOC: MAMMO 11:21
PROVIDERS: ATTEND Nurse Practitioner Family
DX: Z12.31 Encounter for screening mammogram for malignant neoplasm of breast (principal)

== ENCOUNTER → 2022-07-11 | Outpatient (CLI) | payer MEDICARE | END | disposition home or self-care (01) | LOC: US 10:00 | PROVIDERS: ATTEND Internal Medicine Nephrology | DX: R31.9 Hematuria, unspecified (principal) ==

== ENCOUNTER 2022-12-06 17:10 | Emergency (ER) | payer MEDICARE ==
[2022-12-06 17:28] VITALS: BP 154/70
[2022-12-06 17:44] LABS: BILIRUBIN 1+ (Negative); BLOOD 3+ (Negative); CLARITY Cloudy (Clear); GLUCOSE Negative (Negative); KETONE Negative (Negative); LEUKO ESTERASE 3+ (Negative); NITRITE Positive (Negative); UROBILINOGEN 0.2 E.U./dl (0.0-1.0)
[2022-12-06] MEDS ORDERED: CEPHALEXIN500 M1 PO (17:55)
[2022-12-06 18:02] LABS: COLOR Orange (Yellow)
[2022-12-06 18:04] LABS: BACTERIA 1+; EPITHELIAL CELLS 0-2; RBC TNTC rbc/hpf (0-2)
== END 2022-12-06 20:17 | disposition home or self-care (01) ==
LOC: ED 17:10
PROVIDERS: Nurse Practitioner Family
DX: N39.0 Urinary tract infection, site not specified (principal); M10.9 Gout, unspecified; Z88.2 Allergy status to sulfonamides; Z88.1 Allergy status to other antibiotic agents; Z88.8 Allergy status to other drugs, medicaments and biological substances; Z90.49 Acquired absence of other specified parts of digestive tract; Z98.890 Other specified postprocedural states; Z90.710 Acquired absence of both cervix and uterus

== ENCOUNTER 2023-02-04 16:51 | Emergency (ER) | payer MEDICARE ==
[~2023-02-04] VITALS: Ht 167.6 cm; Wt 90.7 kg
[~2023-02-04 16:51] MED LIST changes: +CEPHALEXIN500 M1 PO
[2023-02-04 17:01] VITALS: BP 188/80
[2023-02-04 17:25] LABS: BASO # 0.1 10*3/uL (0.0-0.1); BASO % 0.6 % (0.0-1.0); EOS # 0.2 10*3/uL (0.0-0.4); EOS % 2.2 % (1.0-4.0); HEMATOCRIT 39.6 % (37.0-47.0); LYMPH # 1.8 10*3/uL (1.3-4.4); LYMPH % 17.4 % (27.0-41.0); MEAN CELL VOLUME 94.7 fl (81.0-99.0); MEAN CORPUSCULAR HGB 31.1 pg (27.0-31.0); MEAN CORPUSCULAR HGB CONC 32.8 g/dl (33.0-37.0); MEAN PLATELET VOLUME 9.9 fl (9.6-12.3); MONO % 9.7 % (3.0-9.0); NEUT % 69.9 % (47.0-73.0); PLATELET COUNT AUTOMATED 284 10*3/uL (130-400); RED BLOOD COUNT 4.18 10*6/uL (4.10-5.10); RED CELL DISTRI WIDTH 13.7 % (0-14.5)
[2023-02-04 17:48] LABS: ALKALINE PHOSPHATASE 106 U/L (46-116); BUN 14 mg/dl (9-23); CHLORIDE 104 mmol/L (98-107); LIPASE 28 U/L (12-53); POTASSIUM 4.3 mmol/L (3.4-5.1); SGPT/ALT 10 U/L (10-49); TOTAL PROTEIN 7.6 gm/dL (6.0-8.0)
[2023-02-04 17:54] LABS: BILIRUBIN Negative (Negative); BLOOD 2+ (Negative); CLARITY Clear (Clear); COLOR Yellow (Yellow); GLUCOSE Negative (Negative); KETONE Negative (Negative); LEUKO ESTERASE 2+ (Negative); NITRITE Positive (Negative); PH 5.5 (4.5-8.0); UROBILINOGEN 0.2 E.U./dl (0.0-1.0)
[2023-02-04 18:03] LABS: BACTERIA 3+; WBC TNTC wbc/hpf (0-5)
[2023-02-04] MEDS ORDERED: AMOX-CLAV 875-1 EACH PO (18:09)
== END 2023-02-04 18:30 | disposition home or self-care (01) ==
LOC: ED 16:51
PROVIDERS: Nurse Practitioner Family
DX: N39.0 Urinary tract infection, site not specified (principal); M10.9 Gout, unspecified; Z88.2 Allergy status to sulfonamides; Z88.1 Allergy status to other antibiotic agents; Z88.8 Allergy status to other drugs, medicaments and biological substances; Z90.49 Acquired absence of other specified parts of digestive tract; Z90.710 Acquired absence of both cervix and uterus; Z98.890 Other specified postprocedural states

== ENCOUNTER → 2023-04-21 | Outpatient (CLI) | payer MEDICARE ==
[~2023-04-21] MED LIST changes: +AMOX-CLAV 875-1 EACH PO
[2023-04-21 15:03] LABS: BILIRUBIN Negative (Negative); BLOOD Negative (Negative); CLARITY Clear (Clear); COLOR Yellow (Yellow); GLUCOSE Negative (Negative); KETONE Negative (Negative); LEUKO ESTERASE 2+ (Negative); NITRITE Negative (Negative); PH 5.5 (4.5-8.0); UROBILINOGEN 0.2 E.U./dl (0.0-1.0)
[2023-04-21 15:12] LABS: BACTERIA 3+; WBC 41-50 wbc/hpf (0-5)
== END | disposition home or self-care (01) ==
LOC: LAB 14:36
PROVIDERS: ATTEND Urology
DX: N39.0 Urinary tract infection, site not specified (principal)

== ENCOUNTER → 2023-07-17 | Outpatient (CLI) | payer MEDICARE | END | disposition home or self-care (01) | LOC: MAMMO 08:34 | PROVIDERS: ATTEND Nurse Practitioner | DX: Z12.31 Encounter for screening mammogram for malignant neoplasm of breast (principal) ==

== ENCOUNTER → 2024-08-28 | Outpatient (CLI) | payer MEDICARE | END | disposition home or self-care (01) | LOC: CARD 08:04 | PROVIDERS: ATTEND Internal Medicine Cardiovascular Disease | DX: I05.9 Rheumatic mitral valve disease, unspecified (principal); R06.02 Shortness of breath ==

== ENCOUNTER → 2025-04-11 | Outpatient (CLI) | payer MEDICARE ==
[2025-04-11 08:22] LABS: BASO # 0.1 10*3/uL (0.0-0.1); BASO % 0.7 % (0.0-1.0); EOS # 0.3 10*3/uL (0.0-0.4); EOS % 3.4 % (1.0-4.0); MEAN CELL VOLUME 97.4 fl (81.0-99.0); MEAN CORPUSCULAR HGB 30.1 pg (27.0-31.0); MEAN PLATELET VOLUME 9.4 fl (9.6-12.3); MONO # 0.7 10*3/uL (0.1-1.0); MONO % 8.1 % (3.0-9.0); NEUT # 5.4 10*3/uL (2.3-7.9); NEUT % 65.9 % (47.0-73.0); NUCLEATED RED BLOOD CELL 0.0 % (0.0-0.0); NUCLEATED RED BLOOD CELL 0.0 10*3/uL (0.0-0.0); PLATELET COUNT AUTOMATED 298 10*3/uL (130-400); RED CELL DISTRI WIDTH 14.3 % (0-14.5)
[2025-04-11 08:55] LABS: BUN 13.0 mg/dl (9-23); LDL CHOLESTEROL 58.0 mg/dL (9-159); SGPT/ALT 13.0 U/L (5-49); VITAMIN D, 25-HYDROXY 43.3 ng/mL (30-100)
== END | disposition home or self-care (01) ==
LOC: LAB 08:06
PROVIDERS: ATTEND Nurse Practitioner Primary Care
DX: I10 Essential (primary) hypertension (principal); E78.00 Pure hypercholesterolemia, unspecified; E55.9 Vitamin D deficiency, unspecified; M10.9 Gout, unspecified; E53.8 Deficiency of other specified B group vitamins

== ENCOUNTER → 2025-05-28 | Outpatient (CLI) | payer MEDICARE | END | disposition home or self-care (01) | LOC: RAD 00:43 | PROVIDERS: ATTEND Nurse Practitioner Primary Care | DX: Z12.31 Encounter for screening mammogram for malignant neoplasm of breast (principal); Z78.0 Asymptomatic menopausal state ==